=== PATIENT | female | born 1990 | race African-American/Black ===

== ENCOUNTER 2016-12-13 13:56 | Emergency (ER) | payer BC ==
[2016-12-13] MEDS ORDERED: METOCLOPRAMIDE HCL ORAL SOLN 10 MG/10 ML UDCUP PO ONE (14:32)
[2016-12-13] MEDS ORDERED: MAG HYDROX/AL HYDROX/SIMETH SUSP 30 ML UDCUP PO ONE (14:32)
[2016-12-13] MEDS ORDERED: LIDOCAINE 2% VISCOUS SOLN 20 ML UDCUP PO ONE (14:32)
--- NOTE | 2016-12-13 14:46 | ER Document Report ---
HPI - HPI Patient complains to provider of: flu symptoms with vomiting Pain Level: 4 Context: Patient is a 26-year-old female presents emergency Department complaining of headache, body aches with nausea and vomiting that started this morning. Patient states that she works at a [employer] and denies any sick contacts at work or at home. States she did not receive a flu vaccine this year. She also admits to ejected fevers, chills. Abdominal pain described as a burning achy pain in her epigastric area. He denies any history of GERD or heartburn Last menstrual period November 2015, was on Depo-Provera but stopped. Sexually active with a female partner only. Past medical history significant for asthma and seasonal allergies Denies any surgeries Social history admits to occasional alcohol use. REVIEW OF SYSTEMS: CONSTITUTIONAL : admits to fever, chills, or sweats. Denies recent illness. EENT: Denies nasal or sinus congestion or discharge. Denies throat, tongue , or mouth swelling or difficulty swallowing. CARDIOVASCULAR: Denies chest pain. Denies palpitations or racing or irregular heart beat. Denies ankle edema. RESPIRATORY: Denies cough, cold, or chest congestion. Denies shortness of breath, difficulty breathing, or wheezing. GASTROINTESTINAL: see history of present illness Denies abdominal pain or distention. Denies blood in vomitus, stools, or per rectum. Denies black, tarry stools. Denies constipation. GENITOURINARY: Denies difficulty urinating, painful urination, burning, frequency, blood in urine, or discharge. FEMALE GENITOURINARY: Denies vaginal bleeding, heavy or abnormal periods, irregular periods. Denies vaginal discharge or odor. MUSCULOSKELETAL: Denies any muscle spasms, difficulty walking, extremity pain SKIN: Denies rash, lesions or sores. HEMATOLOGIC : Denies easy bruising or bleeding. LYMPHATIC: Denies swollen, enlarged glands. NEUROLOGICAL: Denies confusion or altered mental status. Denies passing out or loss of consciousness. Denies dizziness or lightheadedness. Denies headache. Denies weakness or paralysis or loss of use of either side. Denies problems with gait or speech. Denies sensory loss, numbness, or tingling. Denies seizures. PSYCHIATRIC: Denies anxiety or stress. Denies depression, suicidal ideation, or homicidal ideation. ALL OTHER SYSTEMS REVIEWED AND NEGATIVE. Dictation was performed using [employer] voice recognition software - DERM Skin Color: Normal Past Medical History - Social History Smoking Status: Former Smoker Chew tobacco use (# tins/day): No Frequency of alcohol use: Occasional Drug Abuse: None Family History: Reviewed & Not Pertinent Patient has suicidal ideation: No Patient has homicidal ideation: No Pulmonary Medical History: Reports: Hx Asthma Renal/ Medical History: Denies: Hx Peritoneal Dialysis Surgical Hx: Negative Vertical Provider Document - CONSTITUTIONAL Notes: PHYSICAL EXAM GENERAL: Alert, interacts well. HEAD: Normocephalic, atraumatic. EYES: Pupils equal, round, and reactive to light. Extraocular movements intact. ENT: Peritonsillar erythema without any evidence of peritonsillar abscess or retropharyngeal abscess Oral mucosa moist, tongue midline. NECK: Full range of motion. Supple. Trachea midline. LUNGS: Clear to auscultation bilaterally, no wheezes, rales, or rhonchi. No respiratory distress. HEART: Regular rate and rhythm. No murmurs, gallops, or rubs. ABDOMEN: Soft, nondistended, nontender. No guarding, rebound, or rigidity.. Bowel sounds present in all 4 quadrants. EXTREMITIES: Moves all 4 extremities spontaneously. No edema, radial and dorsalis pedis pulses 2/4 bilaterally. No cyanosis. NEUROLOGICAL: Alert and oriented x4. Normal speech. PSYCH: Normal affect, normal mood. SKIN: Warm, dry, normal turgor. No rashes or lesions noted. - INFECTION CONTROL TRAVEL OUTSIDE OF THE [place] IN LAST 30 DAYS: No - RESPIRATORY O2 Sat by Pulse Oximetry: 98 Course - Re-evaluation Re-evalutation: 12/13/16 15:18 Patient is a 26-year-old female who presents with body aches and nausea vomiting that started today. Patient responded well to GI cocktail. This is negative for strep and influenza. Hematologic is stable, no acute distress and afebrile. Stable for discharge home. - Vital Signs Vital signs: Temp Pulse Resp BP Pulse Ox 99.3 F 102 H 20 132/82 H 98 12/13/16 14:00 12/13/16 14:00 12/13/16 14:00 12/13/16 14:00 12/13/16 14:00 Discharge - Discharge Clinical Impression: Nausea & vomiting Condition: Good Disposition: HOME, SELF-CARE Instructions: Acetaminophen, Antinausea Medication ([facility]), Viral Syndrome ([facility]) , Vomiting ([facility]) Prescriptions: Famotidine [Pepcid 20 mg Tablet] 20 mg PO BID #12 tablet Ondansetron [Zofran Odt 4 mg Tablet] 1 - 2 tab PO Q4H PRN #15 tab.rapdis PRN Reason: For Nausea/Vomiting Sucralfate [Carafate 1 gm Tablet] 1 gm PO ACHS #120 tablet Forms: Elevated Blood Pressure Referrals: MARKY FONTANEZ MD [ACTIVE STAFF] - Follow up as needed
[2016-12-13 17:14] VITALS: BP 112/81
== END 2016-12-13 15:58 | disposition home or self-care (01) ==
LOC: ER 13:56
DX: R11.2 Nausea with vomiting, unspecified (principal); M79.1 Myalgia; R51 Headache; J45.909 Unspecified asthma, uncomplicated; Z87.891 Personal history of nicotine dependence
CPT/HCPCS: 99283; 87070; 87880; 87804; J3490

== ENCOUNTER 2016-12-15 08:37 | Emergency (ER) | payer BC ==
[2016-12-15 08:54] VITALS: BP 123/87
--- NOTE | 2016-12-15 09:15 | ER Document Report ---
HPI - HPI Patient complains to provider of: congestion Pain Level: 5 Context: 26 yo female c/o head congestion, sore throat, shortness of breath x 3 days. P twas seen in ED 2 days ago, had negative rapid strep and rapid flu. labs unremarkable. pt reports n/v have improved but current symptoms started the day after her ED visis. Denies fever, body aches, n/v. Pt admits to hx/o asthma and her present symptoms are triggering her asthma. Uses a rescue inhaler, which is about to "run out" Associated Symptoms: Nonproductive cough, Sinus pain/drainage, Shortness of breath, Sore throat. denies: Fever, Nausea, Vomiting Exacerbated by: Denies Relieved by: Denies Similar symptoms previously: Yes Recently seen / treated by doctor: Yes - ED 2 days ago - ROS Systems Reviewed and Negative: Yes All other systems reviewed and negative - DERM Skin Color: Normal Past Medical History - General Information source: Patient - Social History Smoking Status: Never Smoker Frequency of alcohol use: None Drug Abuse: None Lives with: Family Family History: Reviewed & Not Pertinent Patient has suicidal ideation: No Patient has homicidal ideation: No Pulmonary Medical History: Reports: Hx Asthma Renal/ Medical History: Denies: Hx Peritoneal Dialysis Vertical Provider Document - CONSTITUTIONAL Agree With Documented VS: Yes Exam Limitations: No Limitations - INFECTION CONTROL TRAVEL OUTSIDE OF THE [place] IN LAST 30 DAYS: No - HEENT HEENT: Atraumatic, PERRLA, Pharyngeal Erythema. negative: Pharyngeal Exudate - NECK Neck: Normal Inspection, Supple - RESPIRATORY Respiratory: Breath Sounds Normal, No Respiratory Distress O2 Sat by Pulse Oximetry: 98 - CARDIOVASCULAR Cardiovascular: Regular Rate, Regular Rhythm - GI/ABDOMEN Gastrointestinal: Abdomen Soft, Abdomen Non-Tender - MUSCULOSKELETAL/EXTREMETIES Musculoskeletal/Extremeties: MAEW - NEURO Level of Consciousness: Awake, Alert, Appropriate - DERM Integumentary: Warm, No Rash Course - Re-evaluation Re-evalutation: 12/15/16 09:19 H&P c/w URI. recommend OTC antihistamine/decongestant. Will refill albuterol inhaler for asthma. Pt is afebrile, NAD. pt agreeable with plan and stable for discharge - Vital Signs Vital signs: Temp Pulse Resp BP Pulse Ox 98.3 F 83 16 123/87 H 98 12/15/16 08:52 04/09/17 08:52 12/15/16 08:52 12/15/16 08:52 12/15/16 08:52 Discharge - Discharge Clinical Impression: URI (upper respiratory infection) Condition: Stable Disposition: HOME, SELF-CARE Instructions: Upper Respiratory Illness ([facility]), Asthma ([facility]), Inhaled Bronchodilators ([facility]) Additional Instructions: Your symptoms are consistant with a viral upper respiratory infection no antibiotics are indicated I recommend an over the counter antihistamine/decongestant such as Angella D or Zyrtec D Ibuprofin and push fluids I will refill your inhaler for your asthma Please follow up with your primary care if your symptoms persist Prescriptions: Albuterol Sulfate [Proair HFA Inhalation Aerosol 8.5 gm MDI] 2 puff IH Q4H PRN # 1 mdi PRN Reason:
== END 2016-12-15 09:35 | disposition home or self-care (01) ==
LOC: ER 08:37
DX: J06.9 Acute upper respiratory infection, unspecified (principal); J45.909 Unspecified asthma, uncomplicated; J02.9 Acute pharyngitis, unspecified; R06.02 Shortness of breath; J34.89 Other specified disorders of nose and nasal sinuses; R05 Cough
CPT/HCPCS: 99282

== ENCOUNTER 2017-01-17 06:25 | Emergency (ER) | payer BC ==
--- NOTE | 2017-01-17 07:25 | ER Document Report ---
ED GI/ - General Chief Complaint: Vaginal Itching Stated Complaint: VAGINAL IRRITATION Time Seen by Provider: 01/17/17 07:07 Mode of Arrival: Ambulatory Information source: Patient Notes: Patient presents complaining of vaginal redness, swelling and itching for the past month. Patient reports using [id number] Monistat that improved her symptoms for a short time and then her symptoms returned. Patient's concerned she may be yeast infection. Patient also reports some dysuria and urinary frequency. Patient denies any fever, abdominal pain, or back pain. TRAVEL OUTSIDE OF THE [place] IN LAST 30 DAYS: No - HPI Patient complains to provider of: Other - Vaginal itching, redness. No: Pelvic pain, Vaginal bleeding, Vaginal discharge Onset: Other - One month Timing/Duration: Waxing and waning Quality of pain: Burning Pain Level: 1 Vaginal bleeding (Compared to normal period): None Sexual history: Active Associated symptoms: Dysuria, Urinary frequency. denies: Diarrhea, Fever, Nausea, Urinary hesitancy, Vomiting Exacerbated by: Denies Relieved by: Denies Similar symptoms previously: Yes Recently seen / treated by doctor: No - Related Data Allergies/Adverse Reactions: No Known Allergies Allergy (Verified 12/15/16 08:53) Past Medical History - General Information source: Patient Last Menstrual Period: November 2016 - Social History Smoking Status: Never Smoker Frequency of alcohol use: None Drug Abuse: None Family History: Reviewed & Not Pertinent Patient has suicidal ideation: No Patient has homicidal ideation: No Pulmonary Medical History: Reports: Hx Asthma Renal/ Medical History: Denies: Hx Peritoneal Dialysis Surgical Hx: Negative - Immunizations Hx Diphtheria, Pertussis, Tetanus Vaccination: Yes Review of Systems - Review of Systems Constitutional: No symptoms reported. denies: Fever, Recent illness EENT: No symptoms reported Cardiovascular: No symptoms reported. denies: Chest pain Respiratory: No symptoms reported. denies: Cough, Short of breath Gastrointestinal: No symptoms reported. denies: Abdominal pain, Diarrhea, Nausea, Vomiting Genitourinary: Burning, Dysuria, Frequency Female Genitourinary: Other - Vaginal redness, swelling. denies: Vaginal discharge, Vaginal bleeding Musculoskeletal: No symptoms reported. denies: Back pain Skin: No symptoms reported Hematologic/Lymphatic: No symptoms reported Neurological/Psychological: No symptoms reported Physical Exam - Vital signs Vitals: Temp Pulse Resp BP Pulse Ox 98.2 F 81 16 131/75 H 98 01/17/17 06:28 01/17/17 06:28 01/17/17 06:28 01/17/17 06:28 01/17/17 06:28 - General General appearance: Appears well, Alert In distress: None - HEENT Head: Normocephalic, Atraumatic Eyes: Normal Nasal: Normal Mouth/Lips: Normal Mucous membranes: Normal Neck: Normal, Supple. No: Lymphadenopathy - Respiratory Respiratory status: No respiratory distress Chest status: Nontender Breath sounds: Normal. No: Rales, Rhonchi, Stridor, Wheezing Chest palpation: Normal - Cardiovascular Rhythm: Regular Heart sounds: S1 appreciated, S2 appreciated Murmur: No - Abdominal Inspection: Normal Distension: No distension Bowel sounds: Normal Tenderness: Nontender Organomegaly: No organomegaly - Genitourinary External exam: Other - Mild erythema vaginal introitus. No: Lesions Speculum exam: Vaginal discharge - Small amount white clumpy discharge Vaginal bleeding: None Bimanuel exam: No: Cervical motion tender, Adnexal tenderness - Back Back: Normal, Nontender. No: CVA tenderness - Extremities General upper extremity: Normal inspection, Normal strength General lower extremity: Normal inspection, Normal strength - Neurological Neuro grossly intact: Yes Cognition: Normal [place] Coma Scale Eye Opening: Spontaneous Charlene Coma Scale Verbal: Oriented Charlene Coma Scale Motor: Obeys Commands [place] Coma Scale Total: 15 - Psychological Associated symptoms: Normal affect, Normal mood - Skin Skin Temperature: Warm Skin Moisture: Dry Skin Color: Normal Course - Vital Signs Vital signs: Temp Pulse Resp BP Pulse Ox 98.7 F 64 18 105/60 99 01/17/17 09:18 01/17/17 09:18 01/17/17 09:18 01/17/17 09:18 01/17/17 09:18 - Laboratory Laboratory results interpreted by me: 01/17/17 07:50 Urine Nitrite POSITIVE H Urine Urobilinogen 2.0 H Ur Leukocyte Esterase TRACE H Labs- Entire Visit 01/17/17 01/17/17 07:50 07:52 Urine Color YELLOW Urine Appearance SLIGHTLY-CLOUDY Urine pH 6.0 Ur Specific [place] 1.016 Urine Protein NEGATIVE Urine Glucose (UA) NEGATIVE Urine Ketones NEGATIVE Urine Blood NEGATIVE Urine Nitrite POSITIVE H Urine Bilirubin NEGATIVE Urine Urobilinogen 2.0 H Ur Leukocyte Esterase TRACE H Urine WBC (Auto) 4 Urine RBC (Auto) 0 Urine Bacteria (Auto) TRACE Squamous Epi Cells Auto 1 Urine Mucus (Auto) FEW Urine Ascorbic Acid NEGATIVE Urine HCG, Qual NEGATIVE Trichomonas (Wet Prep) NO TRICHOMONAS SEEN Vaginal WBC NO WBCS SEEN Vaginal Yeast NO YEAST SEEN 01/17/17 09:44 Discharge - Discharge Clinical Impression: UTI (urinary tract infection) Qualifiers: Urinary tract infection type: site unspecified Hematuria presence: without hematuria Qualified Code(s): N39.0 - Urinary tract infection, site not specified Condition: Stable Disposition: HOME, SELF-CARE Instructions: Urinary Tract Infection ([facility]), Trimethoprim-Sulfa ([facility]), Urinary Anesthetic Agent ([facility]) Additional Instructions: Return immediately for any new or worsening symptoms Followup with your primary care provider, call tomorrow to make a followup appointment Prescriptions: Phenazopyridine HCl [Pyridium 200 mg Tablet] 200 mg PO TID #15 tablet Sulfamethoxazole/Trimethoprim [Bactrim Ds Tablet] 1 each PO BID #10 tablet Forms: Return to Work Referrals: GRISELDA MURGUIA [Primary Care Provider] - Follow up as needed [facility] [Provider Group] - Follow up as needed [facility] [Provider Group] - Follow up as needed
[2017-01-17 08:22] LABS: APPEARANCE,URINE SLIGHTLY-CLOUDY; BILIRUBIN,URINE NEGATIVE (NEGATIVE); GLUCOSE, URINE NEGATIVE (NEGATIVE); KETONES,URINE NEGATIVE (NEGATIVE); LEUKOCYTE ESTERASE,URINE TRACE (NEGATIVE); NITRITE,URINE POSITIVE (NEGATIVE); PROTEIN,URINE NEGATIVE (NEGATIVE); URINE SPECIFIC GRAVITY 1.016
[2017-01-17 09:19] VITALS: BP 105/60
[2017-01-17] MEDS ORDERED: FLUCONAZOLE 100 MG TABLET PO ONE (09:24)
[2017-01-17] MEDS ORDERED: SULFAMETHOXAZOLE/TRIMETHOPRIM 800-160 MG TABLET PO ONE (09:24)
[2017-01-17 09:31] LABS: CHLAM PCR NOT DETECTED (NOT DETECT)
== END 2017-01-17 09:35 | disposition home or self-care (01) ==
LOC: ER 06:25
DX: N39.0 Urinary tract infection, site not specified (principal); R30.0 Dysuria; R35.0 Frequency of micturition; L29.9 Pruritus, unspecified; N89.8 Other specified noninflammatory disorders of vagina; J45.909 Unspecified asthma, uncomplicated
CPT/HCPCS: 81001; 81025; 87210; 87491; 87591; 99283

== ENCOUNTER 2019-04-13 09:05 | Emergency (ER) | payer BC, OTHER ==
[2019-04-13 09:12] VITALS: BP 127/76
[2019-04-13] MEDS ORDERED: KETOROLAC TROMETHAMINE INJ/PF 30 MG/1 ML SDV IM ONE (09:40)
--- NOTE | 2019-04-13 09:45 | ER Document Report ---
HPI - HPI Time Seen by Provider: 04/13/19 09:34 Pain Level: 4 Notes: Patient is a 28-year-old female with a history of asthma who presents complaining of right medial ankle pain intermittently for months. Patient states that she has been seen by 2 podiatrists and has received insoles as well as an injection which do seem to help, but her symptoms return. Patient states that she is on her feet 10 hours a day which is what precipitates her soreness. Patient states that the pain does not radiate. No injury. Denies drug allergies. Denies any headache, fever, URI, sore throat, chest pain, palpitations, syncope, cough, shortness of breath, wheeze, dyspnea, abdominal pain, nausea/vomiting/diarrhea, urinary retention, dysuria, hematuria, back pain, loss of control of bowel or bladder, numbness/tingling, muscle paralysis/weakness, or rash. - ROS Systems Reviewed and Negative: Yes All other systems reviewed and negative - REPRODUCTIVE Reproductive: DENIES: : - MUSCULOSKELETAL Musculoskeletal: REPORTS: Extremity pain - right ankle Past Medical History - Social History Smoking Status: Current Every Day Smoker Frequency of alcohol use: None Drug Abuse: None Family History: Reviewed & Not Pertinent Patient has suicidal ideation: No Patient has homicidal ideation: No Pulmonary Medical History: Reports: Hx Asthma Renal/ Medical History: Denies: Hx Peritoneal Dialysis - Immunizations Hx Diphtheria, Pertussis, Tetanus Vaccination: Yes Vertical Provider Document - CONSTITUTIONAL Agree With Documented VS: Yes Notes: PHYSICAL EXAMINATION: GENERAL: Well-appearing, well-nourished and in no acute distress. LUNGS: Breath sounds clear to auscultation bilaterally and equal. No wheezes rales or rhonchi. HEART: Regular rate and rhythm without murmurs, rubs, gallops. Musculoskeletal: Rt foot/ankle: No ecchymosis, swelling, erythema, warmth, or deformity. FROM to passive/active. Strength 5+/5. N/V intact distal. No bony tenderness of the foot/ankle. Achilles intact. Lis Franc maneuver neg. Anterior drawer neg. Extremities: No cyanosis, clubbing, or edema b/l. Peripheral pulses 2+. Capillary refill less than 3 seconds. NEUROLOGICAL: Normal speech, normal gait. Normal sensory, motor exams PSYCH: Normal mood, normal affect. SKIN: Warm, Dry, normal turgor, no rashes or lesions noted. - INFECTION CONTROL TRAVEL OUTSIDE OF THE [place] IN LAST 30 DAYS: No Course - Re-evaluation Re-evalutation: 04/13/19 09:43 Patient is an afebrile, well-hydrated, 28-year-old female who presents to the ED with chronic right ankle pain. Vitals are acceptable without any significant tachycardia, tachypnea, or hypoxia. PE is otherwise unremarkable for any neurovascular compromise, obvious tendon/ligament rupture, obvious fracture/dislocation, septic joint. Ankle stirrup and toradol given today. Patient is nontoxic-appearing. Patient is able to ambulate and weight-bear. No other labs or imaging warranted at this time based on H&P. Conservative measures otherwise for symptoms. Recheck with your PCM in 3-5 days. Consider consult podiatry. Return to the ED with any worsening/concerning symptoms otherwise as reviewed in discharge. Patient is in agreement. - Vital Signs Vital signs: Temp Pulse Resp BP Pulse Ox 98.2 F 97 16 127/76 H 96 04/13/19 09:09 04/13/19 09:09 04/13/19 09:09 04/13/19 09:09 04/13/19 09:09 Discharge - Discharge Clinical Impression: Right ankle pain Qualifiers: Chronicity: chronic Qualified Code(s): M25.571 - Pain in right ankle and joints of right foot; G89.29 - Other chronic pain Condition: Stable Disposition: HOME, SELF-CARE Additional Instructions: Rest, Ice, Compression, Elevation Tylenol/ibuprofen as needed Light stretches daily Strength exercises as able Moist heat and massage may help F/u with your PCP in 3-5 days for a recheck Consider consult(s) with Podiatry/Orthopedics/physical therapy for ongoing/worsening symptoms Return to the ED with any worsening symptoms and/or development of fever, headache, chest pain, palpitations, syncope, shortness of breath, trouble breathing, abdominal pain, n/v/d, muscle weakness/paralysis, numbness/tingling, swelling, redness, or other worsening symptoms that are concerning to you. Forms: Elevated Blood Pressure, Smoking Cessation Education, Return to Work Referrals: AG CROWELL DPM [ACTIVE STAFF] - Follow up as needed
== END 2019-04-13 09:54 | disposition home or self-care (01) ==
LOC: ER 09:05
DX: G89.29 Other chronic pain (principal); M25.571 Pain in right ankle and joints of right foot; J45.909 Unspecified asthma, uncomplicated; F17.200 Nicotine dependence, unspecified, uncomplicated
CPT/HCPCS: 99283; 96374; L4350; J1885

== ENCOUNTER 2019-07-12 07:29 | Emergency (ER) | payer SELFPAY ==
[2019-07-12] MEDS ORDERED: NORMAL SALINE 1000 ML 1,000 ML IV ONE (07:58)
[2019-07-12] MEDS ORDERED: ONDANSETRON HCL INJ/PF 4 MG/2 ML SDV IV ONE (07:58)
--- NOTE | 2019-07-12 07:59 | ER Document Report ---
ED Medical Screen (RME) - General Chief Complaint: Abdominal Pain Stated Complaint: ABDOMINAL PAIN Time Seen by Provider: 07/12/19 07:58 Mode of Arrival: Ambulatory Information source: Patient Notes: Patient presents complaining of nausea vomiting diarrhea for the past several days with lower abdominal tenderness. Patient denies any concerns about . Patient denies any urinary symptoms at this time. I have greeted and performed a rapid initial assessment of this patient. A comprehensive ED assessment and evaluation of the patient, analysis of test results and completion of the medical decision making process will be conducted by additional ED providers. TRAVEL OUTSIDE OF THE [place] IN LAST 30 DAYS: No - Related Data Allergies/Adverse Reactions: No Known Allergies Allergy (Verified 07/12/19 07:32) Home Medications: albuterol inhaler prn Past Medical History - Social History Chew tobacco use (# tins/day): No Frequency of alcohol use: None Drug Abuse: None Pulmonary Medical History: Reports: Hx Asthma Renal/ Medical History: Denies: Hx Peritoneal Dialysis - Immunizations Hx Diphtheria, Pertussis, Tetanus Vaccination: Yes Physical Exam - Abdominal Tenderness: Tender - Lower pelvic
--- NOTE | 2019-07-12 08:09 | ER Document Report ---
ED General - General Chief Complaint: Abdominal Pain Stated Complaint: ABDOMINAL PAIN Time Seen by Provider: 07/12/19 07:58 Mode of Arrival: Ambulatory Information source: Patient TRAVEL OUTSIDE OF THE [place] IN LAST 30 DAYS: No - HPI Notes: 28 healthy female presents today for ~2 days crampy intermittent abd pain worsened by loose stools throghout day, ++nausea w/o vomiting. reports comes today since started 2 days ago and just not getting better as of today. denies urinary symptoms. denies flank or inguinal or pelvic pain, peng VD, dysuria or other urineary sx. no known sick contacts. has felt slightly warm on and off hasnt' taken temp at home. no travel. no other recent illness/antibiotics. denies h/o abd surgeries or GI hx. has cont to have po intact but feels she fairly quickly has to have a loose BM which will make her cramp but then feels better once has defecated. denies melena/hematochezia/dyschezia. no (near) passing out. no rashes - Related Data Allergies/Adverse Reactions: No Known Allergies Allergy (Verified 07/12/19 07:32) Home Medications: albuterol inhaler prn Past Medical History - General Information source: Patient - Social History Smoking Status: Current Every Day Smoker Chew tobacco use (# tins/day): No Frequency of alcohol use: None Drug Abuse: None Family History: Reviewed & Not Pertinent Patient has suicidal ideation: No Patient has homicidal ideation: No Pulmonary Medical History: Reports: Hx Asthma Renal/ Medical History: Denies: Hx Peritoneal Dialysis - Immunizations Hx Diphtheria, Pertussis, Tetanus Vaccination: Yes Review of Systems - Review of Systems Constitutional: See HPI EENT: No symptoms reported Cardiovascular: No symptoms reported Respiratory: No symptoms reported Gastrointestinal: See HPI Genitourinary: No symptoms reported Female Genitourinary: No symptoms reported Musculoskeletal: No symptoms reported Skin: No symptoms reported Hematologic/Lymphatic: No symptoms reported Neurological/Psychological: No symptoms reported Physical Exam - Vital signs Vitals: Temp Pulse Resp BP Pulse Ox 98.0 F 88 14 120/74 100 07/12/19 07:33 07/12/19 07:33 07/12/19 07:33 07/12/19 07:33 07/12/19 07:33 Interpretation: Normal - General General appearance: Appears well, Alert In distress: None - HEENT Head: Normocephalic, Atraumatic Eyes: Normal Pupils: PERRL - Respiratory Respiratory status: No respiratory distress Chest status: Nontender Breath sounds: Normal Chest palpation: Normal - Cardiovascular Rhythm: Regular Heart sounds: Normal auscultation Murmur: No - Abdominal Inspection: Normal. No: Wounds Distension: No distension Bowel sounds: Normal Tenderness: Tender - there is nonfocal ttp she vergbalizes when i palpate more deeply in b/l mid/lower quadrants. No: McBurney's point, Payton's sign, Guarding, Rebound Organomegaly: No organomegaly - Rectal Notes: deferred had no episodes diarrhea while observed in ed - Back Back: Normal, Nontender - Extremities General upper extremity: Normal inspection, Nontender, Normal color, Normal ROM, Normal temperature General lower extremity: Normal inspection, Nontender, Normal color, Normal ROM, Normal temperature, Normal weight bearing. No: Ann-Marie's sign - Neurological Neuro grossly intact: Yes Cognition: Normal Orientation: AAOx4 [place] Coma Scale Eye Opening: Spontaneous [place] Coma Scale Verbal: Oriented Charlene Coma Scale Motor: Obeys Commands [place] Coma Scale Total: 15 Speech: Normal Motor strength normal: LUE, RUE, LLE, RLE Sensory: Normal - Psychological Associated symptoms: Normal affect, Normal mood - Skin Skin Temperature: Warm Skin Moisture: Dry Skin Color: Normal Course - Re-evaluation Re-evalutation: 08/11/19 18:12 pt labs reviewed wnl. upt (-) urine wnl. vomited nonbloody 1x inED after odt zofran therefore admin 4iv. and then asked if she felt she could try some liquids. her pain wasn't a problem while she rested in ED and her VS remained wnl (at prior baselines); therefore didn't admin iv fluids. she tolerated po ok. i spoke w/ pt regarding my exam which was reassuring to me since her ttp was mild and w/ her hx of low grade fevers and loose stools most likely this is a viral Ge. we discussed warning signs for return and ways to ensure she stays hydrated staying away from high sugar content liquids to prevent more diarrhea. pt understands. i also said watch out for bloody or cont diarrhea or if abd pain were to become more localized eg. in center of belly or ruq or one specific spot or she has increased sx w/ fever vomiting and this type of pain she should be seen and we'd need to consider her appendix and other things besides VGE. 08/11/19 18:16 - Vital Signs Vital signs: Temp Pulse Resp BP Pulse Ox 99.1 F 83 18 105/65 96 07/12/19 11:07 07/12/19 11:07 07/12/19 11:07 07/12/19 11:07 07/12/19 11:07 - Laboratory Result Diagrams: 07/12/19 08:36 07/12/19 08:36 Laboratory results interpreted by me: 07/12/19 07/12/19 08:00 08:36 Chloride 109 H Total Protein 5.9 L Albumin 3.4 L Urine Urobilinogen 2.0 H Discharge - Discharge Clinical Impression: Diarrhea, Abdominal cramping Condition: Good Disposition: HOME, SELF-CARE Additional Instructions: Please follow-up with your regular doctor for regular maintenance. Continue to stay hydrated and eat normal meals. Watch for any fevers greater than 100.4, any vomiting or any blood in stool. Please return if you do have any pain or vaginal discharge or symptoms, today you have not had any continued loose stools and you are very well-appearing well-hydrated, so hopefully this is self resolved. Please though be looking out for any worsening described above SO YOU can seek care. Forms: Return to Work
[2019-07-12 08:28] LABS: APPEARANCE,URINE CLOUDY; BILIRUBIN,URINE NEGATIVE (NEGATIVE); COLOR,URINE YELLOW; GLUCOSE, URINE NEGATIVE (NEGATIVE); KETONES,URINE NEGATIVE (NEGATIVE); LEUKOCYTE ESTERASE,URINE NEGATIVE (NEGATIVE); NITRITE,URINE NEGATIVE (NEGATIVE); PROTEIN,URINE NEGATIVE (NEGATIVE); URINE SPECIFIC GRAVITY 1.016
[2019-07-12 08:32] LABS: ADD MANUAL MICROSCOPIC YES
[2019-07-12 08:33] LABS: BACTERIA,URINE TRACE /HPF; RBC,URINE RARE /HPF
[2019-07-12 08:49] LABS: ABSOLUTE EOSINOPHILS # (AUTO) 0.1 10^3/uL (0.0-0.6); ABSOLUTE LYMPHOCYTES (AUTO) 1.7 10^3/uL (0.5-4.7); ABSOLUTE MONOCYTES (AUTO) 0.5 10^3/uL (0.1-1.4); ABSOLUTE NEUT (AUTO) 2.7 10^3/uL (1.7-8.2); BASOPHILS % (AUTO) 0.4 % (0-2); EOSINOPHILS % (AUTO) 1.4 % (0-6); HEMATOCRIT 42.2 % (36.0-47.0); HEMOGLOBIN 14.8 g/dL (12.0-15.5); LYMPHOCYTES % (AUTO) 34.7 % (13-45); MEAN CORPUSCULAR HEMOGLOBIN 33.2 pg (27.0-33.4); MEAN CORPUSCULAR HGB CONC 35.1 g/dL (32.0-36.0); MEAN CORPUSCULAR VOLUME 95 fl (80-97); MONOCYTES % (AUTO) 9.4 % (3-13); PLATELET COUNT 225 10^3/uL (150-450); RED BLOOD COUNT 4.47 10^6/uL (3.72-5.28); RED CELL DISTRIBUTION WIDTH 11.9 % (11.5-14.0); SEGMENTED NEUTROPHILS % (AUTO) 54.1 % (42-78); TOTAL CELLS COUNTED % (AUTO) 100 %
[2019-07-12] MEDS ORDERED: ONDANSETRON 4 MG TAB.RAPDIS PO ONE (08:54)
[2019-07-12 09:13] LABS: ALBUMIN 3.4 g/dL (3.5-5.0); ALKALINE PHOSPHATASE 40 U/L (38-126); ASPARTATE AMINO TRANSFERASE 17 U/L (14-36); BILIRUBIN,TOTAL 0.6 mg/dL (0.2-1.3); BLOOD UREA NITROGEN 8 mg/dL (7-20); CALCIUM 8.7 mg/dL (8.4-10.2); CARBON DIOXIDE 24 mmol/L (22-30); GLUCOSE 92 mg/dL (75-110); POTASSIUM 4.4 mmol/L (3.6-5.0); TOTAL PROTEIN 5.9 g/dL (6.3-8.2)
[2019-07-12 09:19] LABS: ANION GAP 5 (5-19); CHLORIDE 109 mmol/L (98-107)
[2019-07-12 11:12] VITALS: BP 105/65
== END 2019-07-12 11:22 | disposition home or self-care (01) ==
LOC: ER 07:29
DX: R19.7 Diarrhea, unspecified (principal); R10.30 Lower abdominal pain, unspecified; R50.9 Fever, unspecified; R11.10 Vomiting, unspecified; F17.200 Nicotine dependence, unspecified, uncomplicated
CPT/HCPCS: 99284; 36415; 83690; 85025; 81025; 80053; 81001; S0119

== ENCOUNTER 2019-08-24 08:13 | Emergency (ER) | payer SELFPAY ==
[2019-08-24 08:25] VITALS: BP 105/79
== END 2019-08-24 08:55 | disposition left against medical advice (07) ==
LOC: ER 08:13
DX: Z53.21 Procedure and treatment not carried out due to patient leaving prior to being seen by health care provider (principal)

== ENCOUNTER 2019-12-21 04:49 | Emergency (ER) | payer SELFPAY ==
[2019-12-21] MEDS ORDERED: IPRATROPIUM/ALBUTEROL 0.5-2.5 MG/3 ML AMPUL NEB ONE (04:53)
[2019-12-21] MEDS ORDERED: ALBUTEROL SULFATE 0.083% NEB 2.5 MG/3 ML AMPUL NEB ONE ×2 (04:53)
--- NOTE | 2019-12-21 04:54 | ER Document Report ---
HPI <SAPPHIRE RAMIREZ - Last Filed: 12/21/19 11:09> - HPI Notes: 29-year-old female patient presented to the emergency department chief complaint of possible asthma exacerbation. Patient reports that she is out of her pro-air inhaler. She reports she has had increased wheezing over the last 4 days. She states her allergies trigger her asthma. - REPRODUCTIVE Reproductive: DENIES: : <LAMBERTO BLANCAS - Last Filed: 12/23/19 01:40> - HPI Time Seen by Provider: 12/21/19 04:50 Past Medical History - General Information source: Patient - Social History Smoking Status: Never Smoker Family History: Reviewed & Not Pertinent Pulmonary Medical History: Reports: Hx Asthma Renal/ Medical History: Denies: Hx Peritoneal Dialysis Surgical Hx: Negative - Immunizations Hx Diphtheria, Pertussis, Tetanus Vaccination: Yes <LAMBERTO BLANCAS - Last Filed: 12/23/19 01:40> Vertical Provider Document - CONSTITUTIONAL Notes: PHYSICAL EXAMINATION: GENERAL: Well-appearing, well-nourished and in no acute distress. HEAD: Atraumatic, normocephalic. EYES: Pupils equal round extraocular movements intact, conjunctiva are normal. ENT: Nares patent NECK: Normal range of motion LUNGS: No respiratory distress, mild to moderate expiratory wheezes noted bilaterally. No increased work of breathing. Musculoskeletal: Normal range of motion NEUROLOGICAL: Normal speech, normal gait. PSYCH: Normal mood, normal affect. SKIN: Warm, Dry, normal turgor, no rashes or lesions noted. - INFECTION CONTROL TRAVEL OUTSIDE OF THE [place] IN LAST 30 DAYS: No <LAMBERTO BLANCAS - Last Filed: 12/23/19 01:40> Course - Re-evaluation Re-evalutation: 12/21/19 10:47 [facility] pharmacy called and asked to have the [facility]bulizer [facility]. This was done electronically. - Vital Signs Vital signs: Temp Pulse Resp BP Pulse Ox 98.3 F 96 16 123/88 H 100 12/21/19 05:02 12/21/19 06:35 12/21/19 06:35 12/21/19 05:02 12/21/19 06:35 <SAPPHIRE RAMIREZ - Last Filed: 12/21/19 11:09> - Re-evaluation Re-evalutation: Patient had mild to moderate expiratory wheezes noted on arrival. She was not in any respiratory distress. She was given breathing treatments and prednisone here in the emergency department and had significant relief. Patient will be discharged home at this time. Multiple prescriptions sent for patient. <LAMBERTO BLANCAS Madai - Last Filed: 12/23/19 01:40> Discharge <SAPPHIRE RAMIREZ - Last Filed: 12/21/19 11:09> <LAMBERTO BLANCAS - Last Filed: 12/23/19 01:40> - Discharge Clinical Impression: Asthma exacerbation Qualifiers: Asthma severity: moderate Asthma persistence: persistent Qualified Code(s): J45.41 - Moderate persistent asthma with (acute) exacerbation Condition: Stable Disposition: HOME, SELF-CARE Instructions: Asthma ([facility]) Additional Instructions: Please take medications as prescribed. Try to establish care with a primary care provider. There is information on the second page of this packet for the [facility]. I write you a prescription for an inhaled corticosteroid. If this is not affordable I also reviewed a prescription for a nebulizer with medicine for it that contain steroids. Please use as prescribed. Use the pro-air inhaler for shortness of breath or emergencies. You may take 2 puffs every 4 hours as needed. Prescriptions: Prednisone [Deltasone 20 mg Tablet] 3 tab PO DAILY 4 Days #12 tablet Ipratropium/Albuterol Sulfate [Duoneb 3 ml Ampul] 3 ml NEB [id number] PRN #30 vial.neb PRN Reason: Nebulizer [Intelligent Mesh Nebulizer] 1 each MC Q6 PRN #1 each PRN Reason: Nebulizer [Intelligent Mesh Nebulizer] 1 each MC Q6H PRN #1 each PRN Reason: Nebulizer [Intelligent Mesh Nebulizer] 1 each MC Q6H PRN #1 each PRN Reason: Beclomethasone Dipropionate [Qvar Redihaler] 1 - 4 puff IH BID #1 hfa.aeroba
[2019-12-21 05:04] VITALS: BP 123/88
[2019-12-21] MEDS ORDERED: PREDNISONE 20 MG TABLET PO ONE (05:17)
[2019-12-21] MEDS ORDERED: ALBUTEROL SULFATE HFA (90 MCG/PUFF) 8 GM MDI IH ONE (06:25)
== END 2019-12-21 06:42 | disposition home or self-care (01) ==
LOC: ER 04:49
DX: J45.41 Moderate persistent asthma with (acute) exacerbation (principal)
CPT/HCPCS: 94640; 99283; J7512; J7620; J3490

== ENCOUNTER 2020-02-10 11:45 | Emergency (ER) | payer SELFPAY ==
[2020-02-10] MEDS ORDERED: NORMAL SALINE 1000 ML 1,000 ML IV ONE (13:23)
[2020-02-10] MEDS ORDERED: ONDANSETRON HCL INJ/PF 4 MG/2 ML SDV IV ONE (13:23)
--- NOTE | 2020-02-10 13:29 | ER Document Report ---
ED GI/ - General Chief Complaint: Nausea/Vomiting/Diarrhea Stated Complaint: NAUSEA/VOMITING/DIARRHEA Time Seen by Provider: 02/10/20 13:02 Primary Care Provider: [facility] [Provider Group] - Follow up as needed Mode of Arrival: Ambulatory Information source: Patient Notes: Patient presents with a two-week history of nausea and 1 week history of diarrhea. Patient states she has had diarrhea x3 episodes today. Patient denies any vomiting. Patient does state roommate has similar symptoms at home. Patient has had some shortness of breath with wheezing at home although denies any wheezing at this time. Patient states she is almost out of her Nebules for her nebulizer machine. Patient complains of mild cramping to the abdomen prior to diarrhea episodes but otherwise denies any abdominal tenderness. Patient denies any fever. TRAVEL OUTSIDE OF THE [place] IN LAST 30 DAYS: No - HPI Patient complains to provider of: Abdominal pain, Diarrhea, Other - Shortness of breath Onset: Last week Timing/Duration: Persistent Quality of pain: Cramping Pain Level: 1 Location: Pelvis Vaginal bleeding (Compared to normal period): None Associated symptoms: Diarrhea, Nausea. denies: Blood in stool, Urinary hesitancy, Urinary frequency, Urinary retention, Urinary urgency, Vomiting Exacerbated by: Denies Relieved by: Denies Similar symptoms previously: No Recently seen / treated by doctor: No - Related Data Allergies/Adverse Reactions: No Known Allergies Allergy (Verified 07/12/19 07:32) Past Medical History - General Information source: Patient - Social History Smoking Status: Current Every Day Smoker Frequency of alcohol use: Occasional Drug Abuse: None Occupation: Labor findings Lives with: Friend Family History: Reviewed & Not Pertinent Pulmonary Medical History: Reports: Hx Asthma Renal/ Medical History: Denies: Hx Peritoneal Dialysis Surgical Hx: Negative - Immunizations Hx Diphtheria, Pertussis, Tetanus Vaccination: Yes Review of Systems - Review of Systems Constitutional: No symptoms reported. denies: Fever EENT: No symptoms reported Cardiovascular: No symptoms reported. denies: Chest pain Respiratory: Short of breath, Wheezing Gastrointestinal: Abdominal pain, Diarrhea, Nausea. denies: Vomiting, Blood streaked bowels Genitourinary: No symptoms reported. denies: Dysuria, Flank pain Female Genitourinary: No symptoms reported Musculoskeletal: No symptoms reported Skin: No symptoms reported Hematologic/Lymphatic: No symptoms reported Neurological/Psychological: No symptoms reported Physical Exam - Vital signs Vitals: Temp Pulse Resp BP Pulse Ox 99.0 F 75 14 121/77 98 02/10/20 12:01 02/10/20 12:01 02/10/20 12:01 02/10/20 12:01 02/10/20 12:01 - General General appearance: Appears well, Alert In distress: None - HEENT Head: Normocephalic, Atraumatic Eyes: Normal Conjunctiva: Normal Ears: Normal External canal: Normal Tympanic membrane: Normal Nasal: Normal Mouth/Lips: Normal Mucous membranes: Normal Pharynx: Normal. No: Erythema, Exudate, Tonsillar hypertrophy Neck: Normal, Supple. No: Lymphadenopathy - Respiratory Respiratory status: No respiratory distress Chest status: Nontender Breath sounds: Normal. No: Rales, Rhonchi, Stridor, Wheezing Chest palpation: Normal - Cardiovascular Rhythm: Regular Heart sounds: S1 appreciated, S2 appreciated - Abdominal Inspection: Normal Distension: No distension Bowel sounds: Normal Tenderness: Nontender Organomegaly: No organomegaly - Back Back: Normal, Nontender. No: CVA tenderness - Extremities General upper extremity: Normal inspection, Nontender, Normal strength General lower extremity: Normal inspection, Nontender, Normal strength - Neurological Neuro grossly intact: Yes Cognition: Normal Allison Coma Scale Eye Opening: Spontaneous Allison Coma Scale Verbal: Oriented Charlene Coma Scale Motor: Obeys Commands Charlene Coma Scale Total: 15 - Psychological Associated symptoms: Normal affect, Normal mood - Skin Skin Temperature: Warm Skin Moisture: Dry Skin Color: Normal Course - Re-evaluation Re-evalutation: 02/10/20 16:57 Patient's abdomen soft nontender. Patient denies any additional episodes of diarrhea. Breath sounds clear bilaterally. Patient denies any shortness of breath. Chest x-ray reviewed, no concern for pneumonia or pneumothorax. Patient will be screened for the coronavirus at this time. Patient reports that she did have wheezing at home and does have an underlying history of asthma. Patient also reports that she is almost out of her Nebules for her nebulizer. Good return precautions discussed with patient. Patient verbalized understanding is agreeable with discharge plan of care at this time. - Vital Signs Vital signs: Temp Pulse Resp BP Pulse Ox 98.4 F 68 14 121/89 H 100 02/10/20 17:32 02/10/20 17:32 02/10/20 17:32 02/10/20 17:32 02/10/20 17:32 - Laboratory Result Diagrams: 02/10/20 15:30 02/10/20 15:30 Laboratory results interpreted by me: 02/10/20 02/10/20 02/10/20 13:10 15:30 15:30 Hgb 16.2 H MCV 98 H MCH 33.9 H Total Protein 8.5 H Urine Urobilinogen 2.0 H Labs- All tests 24 hr 02/10/20 02/10/20 02/10/20 13:10 14:30 15:30 WBC 6.6 RBC 4.76 Hgb 16.2 H Hct 46.6 MCV 98 H MCH 33.9 H MCHC 34.7 RDW 11.7 Plt Count 259 Lymph % (Auto) 37.3 [place] % (Auto) 6.6 Eos % (Auto) 3.0 Baso % (Auto) 0.6 Absolute Neuts (auto) 3.5 Absolute Lymphs (auto) 2.5 Absolute Monos (auto) 0.4 Absolute Eos (auto) 0.2 Absolute Basos (auto) 0.0 Seg Neutrophils % 52.5 Sodium Potassium Chloride Carbon Dioxide Anion Gap BUN Creatinine Est GFR ( Amer) Est GFR (MDRD) Non-Af Glucose Calcium Total Bilirubin Direct Bilirubin Neonat Total Bilirubin Neonat Direct Bilirubin Neonat Indirect Bili AST ALT Alkaline Phosphatase Total Protein Albumin Lipase Serum HCG, Qual Urine Color YELLOW Urine Appearance SLIGHTLY-CLOUDY Urine pH 6.0 Ur Specific [place] 1.021 Urine Protein NEGATIVE Urine Glucose (UA) NEGATIVE Urine Ketones NEGATIVE Urine Blood NEGATIVE Urine Nitrite NEGATIVE Urine Bilirubin NEGATIVE Urine Urobilinogen 2.0 H Ur Leukocyte Esterase NEGATIVE Urine WBC (Auto) 1 Urine RBC (Auto) 10 Urine Bacteria (Auto) 1+ Squamous Epi Cells Auto <1 Urine Mucus (Auto) FEW Urine Ascorbic Acid NEGATIVE Influenza A (Rapid) NEGATIVE Influenza B (Rapid) NEGATIVE 02/10/20 02/10/20 15:30 15:30 WBC RBC Hgb Hct MCV MCH MCHC RDW Plt Count Lymph % (Auto) [place] % (Auto) Eos % (Auto) Baso % (Auto) Absolute Neuts (auto) Absolute Lymphs (auto) Absolute Monos (auto) Absolute Eos (auto) Absolute Basos (auto) Seg Neutrophils % Sodium 138.3 Potassium 4.4 Chloride 105 Carbon Dioxide 26 Anion Gap 7 BUN 7 Creatinine 0.65 Est GFR ( Amer) > 60 Est GFR (MDRD) Non-Af > 60 Glucose 89 Calcium 9.8 Total Bilirubin 1.1 Direct Bilirubin 0.0 Neonat Total Bilirubin Not Reportable Neonat Direct Bilirubin Not Reportable Neonat Indirect Bili Not Reportable AST 20 ALT 12 Alkaline Phosphatase 79 Total Protein 8.5 H Albumin 5.0 Lipase 101.9 Serum HCG, Qual NEGATIVE Urine Color Urine Appearance Urine pH Ur Specific [place] Urine Protein Urine Glucose (UA) Urine Ketones Urine Blood Urine Nitrite Urine Bilirubin Urine Urobilinogen Ur Leukocyte Esterase Urine WBC (Auto) Urine RBC (Auto) Urine Bacteria (Auto) Squamous Epi Cells Auto Urine Mucus (Auto) Urine Ascorbic Acid Influenza A (Rapid) Influenza B (Rapid) - Diagnostic Test Radiology reviewed: Reports reviewed Discharge - Discharge Clinical Impression: Nausea, Shortness of breath Diarrhea Qualifiers: Diarrhea type: unspecified type Qualified Code(s): R19.7 - Diarrhea, unspecified Asthma Qualifiers: Asthma severity: unspecified severity Asthma persistence: unspecified Asthma complication type: unspecified Qualified Code(s): J45.909 - Unspecified asthma, uncomplicated Condition: Stable Disposition: HOME, SELF-CARE Instructions: COVID-19 Guidance for Persons Under Investigation, Antinausea Medication ([facility]), Asthma ([facility]), Diarrhea, Nonspecific ([facility]), Inhaled Bronchodilators ([facility]), Intravenous (IV) Fluids ([facility]), Steroid Medication Additional Instructions: Return immediately for any new or worsening symptoms Followup with your primary care provider, call tomorrow to make a followup appointment Prescriptions: Prednisone [Deltasone 10 mg Tablet] 10 mg PO ASDIR #21 tablet Albuterol Sulfate [Ventolin 0.083% Neb 2.5 mg/3 ml Ampul] 1 vial NEB Q4 PRN #30 vial PRN Reason: Ondansetron [Zofran Odt 4 mg Tablet] 1 tab PO Q6H #15 tab.rapdis Forms: Return to Work Referrals: [facility] [Provider Group] - Follow up as needed
--- NOTE | 2020-02-10 14:14 | RADIOLOGY REPORT (SQ) ---
EXAM DESCRIPTION: CHEST SINGLE VIEW IMAGES COMPLETED DATE/TIME: 02/10/2020 1:51 pm REASON FOR STUDY: sob COMPARISON: None. NUMBER OF VIEWS: One view. TECHNIQUE: Single frontal radiographic view of the chest acquired. LIMITATIONS: None. FINDINGS: LUNGS AND PLEURA: No opacities, masses or pneumothorax. No pleural effusion. MEDIASTINUM AND HILAR STRUCTURES: No masses. Contour normal. HEART AND VASCULAR STRUCTURES: Heart normal in size. Normal vasculature. BONES: No acute findings. HARDWARE: None in the chest. OTHER: No other significant finding. IMPRESSION: NO SIGNIFICANT RADIOGRAPHIC FINDING IN THE CHEST. TECHNICAL DOCUMENTATION: JOB ID: [id number] 2010 [employer]- All Rights Reserved Reading location - IP/workstation name: [email or web address]
[2020-02-10 14:15] LABS: APPEARANCE,URINE SLIGHTLY-CLOUDY; BILIRUBIN,URINE NEGATIVE (NEGATIVE); COLOR,URINE YELLOW; GLUCOSE, URINE NEGATIVE (NEGATIVE); KETONES,URINE NEGATIVE (NEGATIVE); LEUKOCYTE ESTERASE,URINE NEGATIVE (NEGATIVE); NITRITE,URINE NEGATIVE (NEGATIVE); PROTEIN,URINE NEGATIVE (NEGATIVE); URINE SPECIFIC GRAVITY 1.021
[2020-02-10 15:37] LABS: A TYPE INFLUENZA AG NEGATIVE (NEGATIVE); B INFLUENZA AG NEGATIVE (NEGATIVE)
[2020-02-10 15:51] LABS: ABSOLUTE EOSINOPHILS # (AUTO) 0.2 10^3/uL (0.0-0.6); ABSOLUTE LYMPHOCYTES (AUTO) 2.5 10^3/uL (0.5-4.7); ABSOLUTE MONOCYTES (AUTO) 0.4 10^3/uL (0.1-1.4); ABSOLUTE NEUT (AUTO) 3.5 10^3/uL (1.7-8.2); BASOPHILS % (AUTO) 0.6 % (0-2); HEMATOCRIT 46.6 % (36.0-47.0); HEMOGLOBIN 16.2 g/dL (12.0-15.5); LYMPHOCYTES % (AUTO) 37.3 % (13-45); MEAN CORPUSCULAR HEMOGLOBIN 33.9 pg (27.0-33.4); MEAN CORPUSCULAR HGB CONC 34.7 g/dL (32.0-36.0); MEAN CORPUSCULAR VOLUME 98 fl (80-97); MONOCYTES % (AUTO) 6.6 % (3-13); PLATELET COUNT 259 10^3/uL (150-450); RED BLOOD COUNT 4.76 10^6/uL (3.72-5.28); RED CELL DISTRIBUTION WIDTH 11.7 % (11.5-14.0); SEGMENTED NEUTROPHILS % (AUTO) 52.5 % (42-78); TOTAL CELLS COUNTED % (AUTO) 100 %; WHITE BLOOD COUNT 6.6 10^3/uL (4.0-10.5)
[2020-02-10 16:05] LABS: ALKALINE PHOSPHATASE 79 U/L (38-126); ANION GAP 7 (5-19); ASPARTATE AMINO TRANSFERASE 20 U/L (14-36); BILIRUBIN,TOTAL 1.1 mg/dL (0.2-1.3); BLOOD UREA NITROGEN 7 mg/dL (7-20); CALCIUM 9.8 mg/dL (8.4-10.2); CARBON DIOXIDE 26 mmol/L (22-30); CHLORIDE 105 mmol/L (98-107); GLUCOSE 89 mg/dL (75-110); POTASSIUM 4.4 mmol/L (3.6-5.0); TOTAL PROTEIN 8.5 g/dL (6.3-8.2)
[2020-02-10 17:36] VITALS: BP 121/89
== END 2020-02-10 17:36 | disposition home or self-care (01) ==
LOC: ER 11:45
DX: R11.2 Nausea with vomiting, unspecified (principal); R19.7 Diarrhea, unspecified; R06.02 Shortness of breath; J45.909 Unspecified asthma, uncomplicated; F17.200 Nicotine dependence, unspecified, uncomplicated; Z20.828 Contact with and (suspected) exposure to other viral communicable diseases
CPT/HCPCS: 99284; 96361; 96374; 36415; 83690; 84703; 85025; 87635; 80053; 81001; 87804; 71045; J2405; J7030; C9803

== ENCOUNTER 2020-04-18 08:18 | Emergency (ER) | payer SELFPAY ==
[2020-04-18 09:05] LABS: ABSOLUTE EOSINOPHILS # (AUTO) 0.1 10^3/uL (0.0-0.6); ABSOLUTE LYMPHOCYTES (AUTO) 2.2 10^3/uL (0.5-4.7); ABSOLUTE MONOCYTES (AUTO) 0.5 10^3/uL (0.1-1.4); BASOPHILS % (AUTO) 0.6 % (0-2); EOSINOPHILS % (AUTO) 1.4 % (0-6); HEMOGLOBIN 14.6 g/dL (12.0-15.5); LYMPHOCYTES % (AUTO) 27.9 % (13-45); MEAN CORPUSCULAR HEMOGLOBIN 33.7 pg (27.0-33.4); MEAN CORPUSCULAR HGB CONC 34.8 g/dL (32.0-36.0); MEAN CORPUSCULAR VOLUME 97 fl (80-97); MONOCYTES % (AUTO) 6.4 % (3-13); PLATELET COUNT 235 10^3/uL (150-450); RED BLOOD COUNT 4.34 10^6/uL (3.72-5.28); RED CELL DISTRIBUTION WIDTH 11.9 % (11.5-14.0); SEGMENTED NEUTROPHILS % (AUTO) 63.7 % (42-78); TOTAL CELLS COUNTED % (AUTO) 100 %; WHITE BLOOD COUNT 7.8 10^3/uL (4.0-10.5)
[2020-04-18 09:08] LABS: APPEARANCE,URINE SLIGHTLY-CLOUDY; BILIRUBIN,URINE NEGATIVE (NEGATIVE); COLOR,URINE YELLOW; GLUCOSE, URINE NEGATIVE (NEGATIVE); KETONES,URINE NEGATIVE (NEGATIVE); LEUKOCYTE ESTERASE,URINE NEGATIVE (NEGATIVE); NITRITE,URINE NEGATIVE (NEGATIVE); PROTEIN,URINE NEGATIVE (NEGATIVE); URINE SPECIFIC GRAVITY 1.026
[2020-04-18 09:23] LABS: ALBUMIN 4.3 g/dL (3.5-5.0); ALKALINE PHOSPHATASE 63 U/L (38-126); ANION GAP 5 (5-19); ASPARTATE AMINO TRANSFERASE 19 U/L (14-36); BILIRUBIN,TOTAL 0.9 mg/dL (0.2-1.3); BLOOD UREA NITROGEN 13 mg/dL (7-20); CARBON DIOXIDE 22 mmol/L (22-30); CHLORIDE 110 mmol/L (98-107); CREATINE KINASE 76 U/L (30-135); GLUCOSE 124 mg/dL (75-110); POTASSIUM 3.8 mmol/L (3.6-5.0); TOTAL PROTEIN 7.6 g/dL (6.3-8.2)
[2020-04-18 09:36] LABS: CREATINE KINASE MB 0.24 ng/mL (<4.55)
[2020-04-18 09:40] LABS: TROPONIN I < 0.012 ng/mL
--- NOTE | 2020-04-18 10:34 | ER Document Report ---
ED Medical Screen (RME) - General Chief Complaint: Syncope Stated Complaint: POSSIBLE SYNCOPE Time Seen by Provider: 04/18/20 10:10 TRAVEL OUTSIDE OF THE [place] IN LAST 30 DAYS: No - HPI Notes: 04/18/20 10:32 29-year-old female presents to the emergency room for reports of having intermittent syncopal events since 2013, however 2 nights ago she states that she blacked out while she was in the shower. Reports that she started to feel dizzy and tried to get out of the shower before she knew it she blacked out. States that she woke up with her feet over the tub. Unwitnessed event. Denies any new foods medications or supplements. Patient states that she has had dizzy spells in the past with syncopal events but this time it scared her the most being in the shower and passing out. Patient is never been seen by a primary care provider neurologist or product management internship for this concerned because it never scared her before. States her last menstrual cycle was March 20, 2020. Patient states she has not noticed a pattern with her syncopal events, denies having an aura. Denies any history of cardiac issues, seizures, any other medical issues besides having asthma. Denies any chest pain or shortness of breath, denies any fevers or chills. I have greeted and performed a rapid initial assessment of this patient. A comprehensive ED assessment and evaluation of the patient, analysis of test results and completion of the medical decision making process will be conducted by additional ED providers. PHYSICAL EXAMINATION: GENERAL: Well-appearing, well-nourished and in no acute distress. HEAD: Atraumatic, normocephalic. EYES: Pupils equal round extraocular movements intact, conjunctiva are normal. NECK: Normal range of motion CV: s1, s2 regular LUNGS: No respiratory distress Musculoskeletal: Normal range of motion NEUROLOGICAL: Normal speech, normal gait. SKIN: Warm, Dry, normal turgor, no rashes or lesions noted. - Related Data Allergies/Adverse Reactions: No Known Allergies Allergy (Verified 07/12/19 07:32) Past Medical History - Social History Frequency of alcohol use: Occasional Pulmonary Medical History: Reports: Hx Asthma Renal/ Medical History: Denies: Hx Peritoneal Dialysis - Immunizations Hx Diphtheria, Pertussis, Tetanus Vaccination: Yes Physical Exam - Vital signs Vitals: Temp Pulse Resp BP Pulse Ox 98.6 F 82 16 127/83 H 98 04/18/20 08:22 04/18/20 08:22 04/18/20 08:22 04/18/20 08:22 04/18/20 08:22 Course - Vital Signs Vital signs: Temp Pulse Resp BP Pulse Ox 98.6 F 68 16 108/74 98 04/18/20 08:22 04/18/20 09:02 04/18/20 08:22 04/18/20 09:02 04/18/20 08:22 - Laboratory Result Diagrams: 04/18/20 08:40 04/18/20 08:40 Laboratory results interpreted by me: 04/18/20 04/18/20 04/18/20 08:40 08:40 08:40 MCH 33.7 H Chloride 110 H Glucose 124 H Urine Blood SMALL H Urine Urobilinogen 2.0 H
--- NOTE | 2020-04-18 11:25 | RADIOLOGY REPORT (SQ) ---
EXAM DESCRIPTION: CHEST 2 VIEWS IMAGES COMPLETED DATE/TIME: 04/18/2020 11:14 am REASON FOR STUDY: Unwitnessed syncopal event last night COMPARISON: 02/10/2020. EXAM PARAMETERS: NUMBER OF VIEWS: two views TECHNIQUE: Digital Frontal and Lateral radiographic views of the chest acquired. RADIATION DOSE: NA LIMITATIONS: none FINDINGS: LUNGS AND PLEURA: No opacities, masses or pneumothorax. No pleural effusion. MEDIASTINUM AND HILAR STRUCTURES: No masses or contour abnormalities. HEART AND VASCULAR STRUCTURES: Heart normal size. No evidence for failure. BONES: No acute findings. HARDWARE: None in the chest. OTHER: No other significant finding. IMPRESSION: NO ACUTE RADIOGRAPHIC FINDING IN THE CHEST. TECHNICAL DOCUMENTATION: JOB ID: [id number] 2010 [employer]- All Rights Reserved Reading location - IP/workstation name: [email or web address]
--- NOTE | 2020-04-18 12:17 | RADIOLOGY REPORT (SQ) ---
EXAM DESCRIPTION: CT HEAD WITHOUT IMAGES COMPLETED DATE/TIME: 04/18/2020 12:06 pm REASON FOR STUDY: Unwitnessed syncopal event last night in shower COMPARISON: None. TECHNIQUE: Axial images acquired through the brain without intravenous contrast. Images reviewed wi th bone, brain and subdural windows. Images stored on PACS. All CT scanners at this facility use dose modulation, iterative reconstruction, and/or weight based d osing when appropriate to reduce radiation dose to as low as reasonably achievable (ALARA). [facility]: Dose Right [facility]: CareDose [facility]: Dose Right [facility]: Teradose 4D [facility]: [employer] RADIATION DOSE: CT Rad equipment meets quality standard of care and radiation dose reduction techniq ues were employed. CTDIvol: 53.2 mGy. DLP: 1097 mGy-cm. mGy. LIMITATIONS: None. FINDINGS: VENTRICLES: Normal size and contour. CEREBRUM: No masses. No hemorrhage. No midline shift. No evidence for acute infarction. Normal gra y/white matter differentiation. No areas of low density in the white matter. CEREBELLUM: No masses. No hemorrhage. No alteration of density. No evidence for acute infarction. EXTRAAXIAL SPACES: No fluid collections. No masses. ORBITS AND GLOBE: No intra- or extraconal masses. Normal contour of globe without masses. CALVARIUM: No fracture. PARANASAL SINUSES: No fluid or mucosal thickening. SOFT TISSUES: No mass or hematoma. OTHER: No other significant finding. IMPRESSION: NORMAL BRAIN CT WITHOUT CONTRAST. EVIDENCE OF ACUTE STROKE: NO. COMMENT: Quality ID # [id number]: Final reports with documentation of one or more dose reduction techniques (e.g., Automated exposure control, adjustment of the mA and/or kV according to patient size, use of iterative reconstruction technique) TECHNICAL DOCUMENTATION: JOB ID: [id number] 2010 [employer]- All Rights Reserved Reading location - IP/workstation name: [email or web address]
--- NOTE | 2020-04-18 12:42 | ER Document Report ---
ED Syncope and Near Syncope - General Chief Complaint: Syncope Stated Complaint: POSSIBLE SYNCOPE Time Seen by Provider: 04/18/20 10:10 Primary Care Provider: DEREJE [facility] [Provider Group] - Follow up in 3-5 days [facility] [Provider Group] - Follow up in 3-5 days [facility] [Provider Group] - Follow up in 3-5 days CARRIE LAGOS MD [ACTIVE STAFF] - Follow up in 3-5 days DALLIN RIVERA MD [NO LOCAL MD] - Follow up in 3-5 days Notes: Patient is a 29-year-old female with no past medical history who presents to the emergency department with a chief complaint of a syncopal episode. Patient sta cristine that she was in the bathroom last night and she does not remember passing out, but she did and when she woke up she was disoriented. Patient called telemedicine and was referred here to the emergency department. Denies any shortness of breath, difficulty breathing, chest pain, abdominal pain, shakiness, or any other symptoms. TRAVEL OUTSIDE OF THE [place] IN LAST 30 DAYS: No - Related Data Allergies/Adverse Reactions: No Known Allergies Allergy (Verified 07/12/19 07:32) Past Medical History - Social History Smoking Status: Never Smoker Frequency of alcohol use: Occasional Family History: Reviewed & Not Pertinent Pulmonary Medical History: Reports: Hx Asthma Renal/ Medical History: Denies: Hx Peritoneal Dialysis - Immunizations Hx Diphtheria, Pertussis, Tetanus Vaccination: Yes Review of Systems - Review of Systems Notes: REVIEW OF SYSTEMS: CONSTITUTIONAL : Denies recent illness. Denies recent unintentional weight loss. Denies fever, chills, or sweats. EENT: Denies eye, ear, throat, or mouth pain, discharge, or symptoms. Denies nasal or sinus congestion. CARDIOVASCULAR: Denies chest pain. RESPIRATORY: Denies shortness of breath, cough, congestion, difficulty breathing, or wheezing. GASTROINTESTINAL: Denies nausea, vomiting, and diarrhea. Denies abdominal pain. Denies constipation. GENITOURINARY: Denies difficulty urinating, burning, blood in urine, urgency or frequency. MUSCULOSKELETAL: Denies neck and back pain. Denies joint pain or swelling. SKIN: Denies rash, itchiness, or lesions HEMATOLOGIC : Denies easy bruising or bleeding. LYMPHATIC: Denies swollen, painful, enlarged glands. NEUROLOGICAL: See HPI. PSYCHIATRIC: Denies stress, anxiety, alteration in sleep patterns, or depression. All other systems reviewed and negative. Physical Exam - Vital signs Vitals: Temp Pulse Resp BP Pulse Ox 98.6 F 82 16 127/83 H 98 04/18/20 08:22 04/18/20 08:22 04/18/20 08:22 04/18/20 08:22 04/18/20 08:22 - Notes Notes: PHYSICAL EXAMINATION: GENERAL: Appears well, healthy, well-nourished, no acute distress. HEAD: Normocephalic, atraumatic. EYES: PERRL, conjunctiva normal, all extraocular movements intact, sclera nonicteric ENT: Moist mucous membranes. NECK: Supple, no noticeable swelling, redness, rash. Normal range of motion. LUNGS: Equal breath sounds bilaterally and clear to auscultation. No wheezes rales or rhonchi. CARDIOVASCULAR: S1-S2, regular rate, regular rhythm. Radial pulses 2+, normal. ABDOMEN: Normoactive bowel sounds. Soft, nontender, no guarding, no rebound tenderness, and no masses palpated. EXTREMITIES: Normal strength and range of motion, no pitting or edema. No cyanosis. NEUROLOGICAL: Moves all extremities upon command. Strength 5/5 in all extremities. PSYCH: Normal mood, normal affect. SKIN: Warm, dry. No rash, lesions, ulcerations noted. Normal skin turgor. Course - Re-evaluation Re-evalutation: 04/18/20 12:45 I attempted to call Dr. Lee, the doctor who took care of the patient via telemedicine. Will await callback. Hematology is unremarkable. Chemistries are also unremarkable, other than a slightly elevated chloride. LFTs are normal. Renal function is also normal. Troponin is negative. hCG is negative. I urinalysis shows a small amount of blood, but is otherwise unremarkable. Patient is possibly starting her menstrual cycle. 04/18/20 12:[address] Lee and he is not the patient's primary care doctor. The patient paid out of pocket for telemedicine. I recommended the patient follow- up with neurology and with cardiology. She agrees with this plan. I told her that these visits may be expensive and will put a discharge planning order in. She is in agreement with this plan. Follow-up precautions were given. Verbal discharge instructions were given to the patient. They verbalized understanding. They are stable for discharge. - Vital Signs Vital signs: Temp Pulse Resp BP Pulse Ox 98 F 68 11 L 106/71 99 04/18/20 13:54 04/18/20 09:02 04/18/20 13:54 04/18/20 13:54 04/18/20 13:54 - Laboratory Result Diagrams: 04/18/20 08:40 04/18/20 08:40 Laboratory results interpreted by me: 04/18/20 04/18/20 04/18/20 08:40 08:40 08:40 [facility] 33.7 H Chloride 110 H Glucose 124 H Urine Blood SMALL H Urine Urobilinogen 2.0 H - EKG Interpretation by Me Additional EKG results interpreted by me: 04/18/20 13:01 Sinus rhythm with first-degree heart block with a rate of 71. OK 216; QRS 88; QT 380; QTc 413. No ST elevations or depressions noted. No previous EKG for comparison. Discharge - Discharge Clinical Impression: Syncope Qualifiers: Syncope type: unspecified Qualified Code(s): R55 - Syncope and collapse Condition: Stable Disposition: HOME, SELF-CARE Additional Instructions: You were seen today in the emergency department for syncopal episode. Your labs are very reassuring. I recommend that you follow-up with neurology since you have had multiple syncopal episodes. Also follow-up with cardiology. When you get insurance, I recommend that you get a primary care provider. You can follow-up with [facility] or [facility], which are clinics in the area to help people without insurance. Referrals: CARRIE LAGOS MD [ACTIVE STAFF] - Follow up in 3-5 days [facility] [Provider Group] - Follow up in 3-5 days [facility] [Provider Group] - Follow up in 3-5 days [facility] [Provider Group] - Follow up in 3-5 days DALLIN RIVERA MD [NO LOCAL MD] - Follow up in 3-5 days
[2020-04-18 13:59] VITALS: BP 106/71
--- NOTE | 2020-04-18 19:38 | EKG REPORT ---
SEVERITY:- ABNORMAL ECG - SINUS RHYTHM FIRST DEGREE AV BLOCK : Confirmed by: Aden Colvin MD 18-Apr-2020 19:38:04
== END 2020-04-18 13:59 | disposition home or self-care (01) ==
LOC: ER 08:18
DX: R55 Syncope and collapse (principal); R42 Dizziness and giddiness; R41.0 Disorientation, unspecified
CPT/HCPCS: 36415; 70450; 71046; 80053; 81001; 82550; 82553; 84484; 84703; 85025; 93005; 93010; 99285